=== PATIENT | female | born 1960 | race Caucasian/White ===

== ENCOUNTER 2020-03-29 17:22 | Inpatient (IN) | payer OTHER ==
[~2020-03-29] VITALS: Ht 165.1 cm; Wt 97.7 kg
[2020-03-29 18:50] VITALS: BP 138/85
[2020-03-29] MEDS ORDERED: ALBUTEROL 90 MCG/ACT 8GM HFA INHALER INH PRN (19:15)
--- NOTE | 2020-03-29 19:43 | HPEPDOC ---
General Date of Admission 03/29/20 Date of Service: March 29, 2020 Chief Complaint The patient is a 59-year-old female admitted with a reason for visit of Jackson Louis Syndrome. 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 Rash first appeared from the scalp with headache and burning on 03/21/20 and progressed to involve the whole body in 3 to 4 days. The rash is itchy and painful. It is red to pink in color desquamating type with patchy areas as well as areas of target like plaques and papules. Had gone to [facility] ED stayed overnight given steroids and discharged with po prednisone, betamethasome ointment. 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 Past Medical History Medical History RA, BRODY, Prediabetes, Reactive airway disease Anxiety and depression, Recurrent UTIs. GERD DDD HLD renal stone Surgical History umbilical hernia repair 1978 CS in 1985 tubal ligation 1986 right carpal tunnel repair 2010 Emergency Ex lap for cecal volvulus 2018 removed cecum and 6 inches of colon Appendectomy with above kidney stone removal 2019 Family History Significant Family History: No pertinent family hx discussed with patient. Social History * Smoker: non-smoker Alcohol: occationally Drugs: denies A-FIB/CHADSVASC A-FIB History Current/History of A-Fib/PAF?: No Review of Systems Constitutional: Reports: Fever, Malaise Eyes: Reports: Other (grittiness of eyes) ENT: Reports: Head Aches Skin: Reports: Rash, Lesions, Breakdown Pulmonary: Denies: Dyspnea, Cough Cardiovascular: Denies: Chest Pain, Palpitations, Orthopnea, Paroxysmal Noc. Dyspnea, Lt Headedness Gastrointestinal: Denies: Nausea, Vomiting, Abdominal Pain, Diarrhea Genitourinary: Reports: Other Symptoms (perineal and perianal mucosal breakdown) Hematologic: Denies: Bruising, Bleeding Excessively Musculoskeletal: Reports: Leg Pain, Muscle Pain Neurological: Denies: Weakness, Numbness, Change in speech, Confusion Psych: Reports: Anxiety, Depression Physical Examination General Exam: Positive: Alert, Cooperative, No Acute Distress Eye Exam: Positive: PERRLA, Conjunctiva & lids normal, EOMI; Negative: Sclera icteric ENT Exam: Positive: Atraumatic, Mucous membr. moist/pink, Pharynx Normal, Tongue Midline, Other ENT (No oral mucosal lesion seen, had uvular swelling which has resolved as reported by alexandra. ) Neck Exam: Positive: Supple; Negative: JVD, thyromegaly Chest Exam: Positive: Clear to auscultation, Normal air movement Heart Exam: Positive: Rate Normal, Regular Rhythm, Normal S1, Normal S2; Negative: Murmurs, Rubs Abdomen Exam: Positive: Normal bowel sounds, Soft, Other (No perineal lesions); Negative: Tenderness, Hepatospenomegaly Extremity Exam: Negative: Clubbing, Cyanosis, Edema Skin Exam: Positive: Rash (desquamating pink/ red patches on back, chest ,arms, face with red target like pink papules and plaques on the face, chest, abddomen, arms, legs), Other skin issue (No perineal lesions noted. 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 Rash first appeared from the scalp with headache and burning on 03/21/20 and progressed to involve the whole body in 3 to 4 days. 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 TEN/SJS thought to be related to Hydroxy chloroquine sulphate mucosal lesions has resolved. follow derm recommendations IVF solumedrol, neoral, tylenol, hydroxyzine stop prednisone, stop pepcid, stop betamethazone oint. dressing to be done as per derm Labs ordered as reccomended by dermatology Derm consult ophthal consult. RA getting outpatient work up Morbid obesity with BRODY reports does not need CPAP Reactive airway disease albuterol prn Anxiety and depression continue home meds GERD PPI Plan / VTE VTE Prophylaxis Ordered?: Yes NELA SIDDIQI MD March 29, 2020 17:39
[2020-03-29] MEDS ORDERED: BETA145CR TOP (20:00)
[2020-03-29] MEDS ORDERED: PRED20TA PO (20:00)
[2020-03-29] MEDS ORDERED: VENTAER INH (20:00)
[2020-03-29] MEDS ORDERED: FAMO20TA PO (20:00)
[2020-03-29] MEDS ORDERED: HYDR50TA70 PO (20:00)
[2020-03-29] MEDS ORDERED: FLUO10CA15 PO (20:03)
[2020-03-29] MEDS ORDERED: BUPR300T92 PO (20:03)
[2020-03-29] MEDS ORDERED: LINZ72CA PO (20:03)
[2020-03-29] MEDS ORDERED: FLUO20CA22 PO (20:03)
[2020-03-29] MEDS ORDERED: VITAD1000T PO (20:03)
[2020-03-29] MEDS ORDERED: PANT40TA3 PO (20:03)
[2020-03-29 20:04] LABS: HEMATOCRIT 36.1 % (36.0-47.0); HEMOGLOBIN 12.2 g/dl (12.0-15.5); MEAN CORPUSCULAR HEMOGLOBIN 31.9 pg (27.0-33.0); MEAN CORPUSCULAR HGB CONC 33.8 g/dl (32.0-36.5); MEAN CORPUSCULAR VOLUME 94.3 fl (80.0-96.0); PLATELET COUNT, AUTOMATED 380 10^3/uL (150-450); RED BLOOD COUNT 3.83 10^6/uL (4.00-5.40); WHITE BLOOD COUNT 18.8 10^3/uL (4.0-10.0)
[2020-03-29] MEDS ORDERED: CETALIQ TOP (20:04)
[2020-03-29 20:26] LABS: ERYTHROCYTE SEDIMENTATION RATE 15 mm/hr (0-30)
[2020-03-29 20:32] LABS: ATYPICAL LYMPH 2 % (0-5); EOSINOPHILS 2 % (0-3); LYMPHOCYTES 20 % (16-44); MONOCYTES 6 % (0-5); NEUTROPHILS 70 % (28-66)
[2020-03-29 20:33] LABS: ALBUMIN 3.3 GM/DL (3.2-5.2); ALT/SGPT 25 U/L (12-78); ANISOCYTOSIS 1+; BILIRUBIN,TOTAL 0.2 MG/DL (0.2-1.0); BLOOD UREA NITROGEN 17 MG/DL (7-18); C REACTIVE PROTEIN QUANTITATIV 9.49 MG/DL (0.00-0.30); CARBON DIOXIDE LEVEL 28 MEQ/L (21-32); CHLORIDE LEVEL 105 MEQ/L (98-107); CREATININE FOR GFR 0.86 MG/DL (0.55-1.30); FREE T4 1.05 NG/DL (0.76-1.46); GLOMERULAR FILTRATION RATE > 60.0 (>45); GLUCOSE, FASTING 118 MG/DL (70-100); IMMUNOGLOBULIN E 69.7 IU/ML (<100); LDH LACTATE DEHYDROGENASE 172 U/L (84-246); MAGNESIUM LEVEL 2.3 MG/DL (1.8-2.4); POTASSIUM SERUM 3.6 MEQ/L (3.5-5.1); SODIUM LEVEL 142 MEQ/L (136-145); URIC ACID 4.6 MG/DL (2.6-6.0)
[2020-03-29] MEDS: hydrOXYzine 50 MG TAB PO SCH (20:33)
[2020-03-29] MEDS: methylPREDNISolone INJ 125 MG/2 ML VIAL (J2930) IV SCH ×2 (20:33→21:04)
[2020-03-29] MEDS: NS 1,000 ML IV SCH ×2 (20:34→21:04)
[2020-03-29 20:43] LABS: PLATELET ESTIMATE NORMAL (NORMAL)
[2020-03-29] MEDS: ENOXAPARIN 40MG/0.4ML SYRINGE (J1650 PER 10MG) SC SCH (23:21)
[2020-03-29] MEDS: ACETAMINOPHEN 325 MG TAB PO PRN (23:35)
[2020-03-30] MEDS: SandIMMUNE 25 MG CAP (cycloSPORINE) (J7515) PO SCH ×2 (00:41→08:35)
[2020-03-30] MEDS: SandIMMUNE 100 MG CAP (J7502) PO SCH ×2 (00:41→08:34)
[2020-03-30 05:13] VITALS: BP 116/69
[2020-03-30 06:27] LABS: BASO % 0.2 % (0.0-1.0); EOS # 0.1 10^3/uL (0.0-0.5); EOS % 0.4 % (0.0-3.0); HEMATOCRIT 35.7 % (36.0-47.0); HEMOGLOBIN 11.7 g/dl (12.0-15.5); LYMPH # 1.9 10^3/uL (1.5-5.0); LYMPH % 11.9 % (24.0-44.0); MEAN CORPUSCULAR HEMOGLOBIN 31.3 pg (27.0-33.0); MEAN CORPUSCULAR HGB CONC 32.8 g/dl (32.0-36.5); MEAN CORPUSCULAR VOLUME 95.5 fl (80.0-96.0); MONO # 0.4 10^3/uL (0.0-0.8); MONO % 2.4 % (0.0-5.0); NEUTROPHILS # 13.3 10^3/uL (1.5-8.5); NEUTROPHILS % 83.2 % (36.0-66.0); PLATELET COUNT, AUTOMATED 367 10^3/uL (150-450); RED BLOOD COUNT 3.74 10^6/uL (4.00-5.40)
[2020-03-30 06:39] LABS: BLOOD UREA NITROGEN 18 MG/DL (7-18); CALCIUM LEVEL 8.4 MG/DL (8.8-10.2); CARBON DIOXIDE LEVEL 29 MEQ/L (21-32); CHLORIDE LEVEL 106 MEQ/L (98-107); CREATININE FOR GFR 0.88 MG/DL (0.55-1.30); GLOMERULAR FILTRATION RATE > 60.0 (>45); GLUCOSE, FASTING 174 MG/DL (70-100); POTASSIUM SERUM 4.2 MEQ/L (3.5-5.1); SODIUM LEVEL 142 MEQ/L (136-145)
--- NOTE | 2020-03-30 07:20 | IPNPDOC ---
Text Note Date of Service The patient was seen on 03/30/20. NOTE Subjective: Feels Ok says spots still have burning and itching sensation. Her eyes feels normal this morning no grittiness. Does complain of extreme dryness of the nostrils. Says having increased desquamation of the skin in the hypogastrium. Physical Exam: Vitals: As below General Exam: Positive: Alert, Cooperative, No Acute Distress Eye Exam: Positive: PERRLA, Conjunctiva & lids normal, EOMI; Negative: Sclera icteric ENT Exam: Positive: Atraumatic, Mucous membr. moist/pink, Pharynx Normal, Tongue Midline, Other ENT (No oral mucosal lesion seen, had uvular swelling which has resolved as reported by alexandra. ) Neck Exam: Positive: Supple; Negative: JVD, thyromegaly Chest Exam: Positive: Clear to auscultation, Normal air movement Heart Exam: Positive: Rate Normal, Regular Rhythm, Normal S1, Normal S2; Negative: Murmurs, Rubs Abdomen Exam: Positive: Normal bowel sounds, Soft, Other (No perineal lesions); Negative: Tenderness, Hepatospenomegaly Extremity Exam: Negative: Clubbing, Cyanosis, Edema Skin Exam: Positive: Rash (desquamating pink/ red patches on back, chest ,arms, face with red target like pink papules and plaques on the face, chest, a bddomen, arms, legs), Other skin issue (No perineal lesions noted. ) Labs and radiology noted. 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 Rash first appeared from the scalp with headache and burning on 03/21/20 and progressed to involve the whole body in 3 to 4 days. 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 TEN/SJS thought to be related to Hydroxy chloroquine sulphate mucosal lesions has resolved. follow derm recommendations IVF solumedrol, neoral, tylenol, hydroxyzine stop prednisone, stop pepcid, stop betamethazone oint. dressing to be done as per derm Labs ordered as reccomended by dermatology Derm consult No ophthalmoly available for unassigned call at this time. Possible Rheumatoid arthritis getting outpatient work up Morbid obesity with BRODY reports does not need CPAP Reactive airway disease albuterol prn Anxiety and depression continue home meds GERD PPI VS,Fishbone, I+O VS, Fishbone, I+O Laboratory Tests 03/29/20 19:48 03/30/20 05:53 Vital Signs Date Time Temp Pulse Resp B/P (MAP) Pulse Ox O2 Delivery O2 Flow Rate FiO2 03/30/20 05:13 97.8 71 17 116/69 (85) 97 Room Air I&O- Last 24 Hours up to 6 AM 03/30/20 06:00 Intake Total 600 ml Output Total 0 ml Balance 600 ml NELA SIDDIQI MD March 30, 2020 07:20
[2020-03-30 07:21] LABS: MAGNESIUM LEVEL 2.2 MG/DL (1.8-2.4)
--- NOTE | 2020-03-30 08:27 | CR.PDOC ---
General Date of Consultation: March 30, 2020 Referring Provider: NELA SIDDIQI MD Attending Physician: RENNY RIBEIRO MD Consultation REASON FOR CONSULTATION/CHIEF COMPLAINT: TEN HISTORY OF PRESENT ILLNESS: Patient is a 59 year old female who originally presented to the dermatology clinic on 03/29/2020 with complaint of rash covering whole body 10 days after starting hydroxychloroquine for RA. Prior to presentation, she had been evaluated by [facility] ED, and was observed overnight for a rash and was treated with: 60 mg of prednisone daily. Pepcid 10 mg BID, Hydroxyzine 50 mg 4 x day, Cetaphil lotion, Betamethasone cream, Tylenol 500 mg q4h-6 hrs. On presentation to the derm clinic she complained of worsening rash that had spread to her whole body after starting on her scalp and progressing down her body. The rash also began to peel, and caused swollen itching eyes, with some sores on her genitals, plus improving oral sore on uvula. 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 This morning pt was examined in her room.She stated that she was feeling better. She had decreased burning sensation all over her body, but still felt uncomfortable, she had sweaty sensation on her bilateral sides, she also complained of gritty sensation and tighter feel to eyelids. Reports improving genital lesions. She is able to tolerate by mouth intake, no trouble or pain wit h defecation or urination. ALLERGIES: Please see below. HOME MEDICATIONS: Please see below. PAST MEDICAL HISTORY: RA, BRODY Prediabetes, Reactive airway disease Anxiety and depression Recurrent UTIs. GERD DDD HLD Renal stone PAST SURGICAL HISTORY: Umbilical hernia repair 1979 CS in 1985 Tubal ligation 1987 Right carpal tunnel repair 2011 Emergency Ex lap for cecal volvulus 2018 removed cecum and 6 inches of colon Appendectomy with above Kidney stone removal 2019 FAMILY HISTORY: Not contributory, son is adult health clinical nurse specialist, daughter is nurse in ICU SOCIAL HISTORY: Non smoker, denies etoh use REVIEW OF SYSTEMS: CONSTITUTIONAL: Reported fever prior to admission, no chills, no weight loss HEENT: Oral sores that are improving, gritty eyelids, no change in vision CARDIOVASCULAR: No chest pain, no murmurs, no chest discomfort RESPIRATORY: No breathing difficulty, no cough, no hemoptysis GENITOURINARY: Reported labia lesions that are resolving MUSCULOSKELETAL: No muscle pain, no weakness, GASTROINTESTINAL: No nausea, no vomiting, no diarrhea SKIN: Whole body rash that is peeling, itching, and burning HEMATOLOGIC/LYMPHATIC: No bleeding PHYSICAL EXAMINATION: VITAL SIGNS: Please see below. GENERAL APPEARANCE: Pleasant, no apparent distress SKIN: Desquamating, peeling, pink to red patches to back, chest , arms, and face. She also has pink to red targetoid pink papules and plaques on her face chest back abdomen arms and legs hands and feet, patient reports rash is less painful today and has decreased in size - BSA 66% HEENT: Head is atraumatic, oral mucosa is moist, round and re-active to light for eyes, eyes do not have hyperemia, no complaint of visual changes, complains of heavy eyelids RESPIRATORY: CTAB CARDIOVASCULAR: S1 and S2 present, no murmurs rubs or gallop LABORATORY DATA: Please see below. ASSESSMENT/PLAN: A 59 year old female admitted for TEN with 66 BSA. Possible subcorneal subtype. Admitted to regular floor. With the possibility to transfer to ICU if condition worsens and plan to transfer to a burn unit in [place] in she has no improvement or worsens, patient aware. She is stable compared to yesterday in clinic, tolerating IV Solumedrol and PO CSA, blood pressure, Mg, K not problematic. 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 SCORTEN score calculated with a mortality rate of 12.1% (Positive for initial surface of detachment >10 and age over 40) - Intravenous fluid resuscitation as needed, enteral feedings tolerated, no pr oblems with urination or defecation - mucosa intact and doing well at this point in time - Regular diet, ad sergio activity - Monitor CBC, BMP (potassium as focus) and K daily while on CSA and to monitor white count for any problematic changes - If spikes fever (100.4 degrees or higher), blood culture to be performed x 2 and repeat temperature in 30 minutes. If persistent fever or blood culture posi tive, defer to primary team on antibiotic coverage and consult ID as indicated - Use gentle cleanser daily prior to applying thick layer of Vaseline and non- adherent dressings (non-adherent dressings should be placed on pressure areas like the back, buttocks, and back of legs) - Solumedrol 125 mg IV every 24 hours x 3 days, SER with patient of steroid IV at high doses, she is aware. Tolerating well right now. - In addition, start Neoral (it needs to specifically be Neoral) at 5 mg/kg divided into AM and PM dose x 5 days of medication - I have changed this from SandIMMUNE to Neoral in the system, pharmacy should contact primary team if for some reason this is going to be a problem in acquiring medication. She has received CSA dosing but I prefer Neoral in this situation (specific brand). The real issue is that it needs to be cyclosporine modified and Neoral is - as long as the medication being given is cyclosporine modified this should be fine - No field artillery operations specialist ophthalmology available. Start artificial tears and prednisolone acetate TID OU to decrease optic inflammation, will require outpatient ophthalmology follow up. I would prefer an inpatient ophtho evaluation but I understand this is not available right now. - Defer biopsy as my concern for TEN/SJS is high enough that I'm not relying on the biopsy to approach treatment - this is a time sensitive matter and needs to be treated now - Family updated. Patient's son - Phill Campos at [phone] would like to be updated on mother's condition. He was spoken to today and all of his questions were answered 2. Elevated WBC with neutrophilia - I favor this to be 2/2 prednisone that has been delivered causing neutrophil demargination. - If spikes fever (100.4 degrees or higher), blood culture to be performed x 2 and repeat temperature in 30 minutes. If persistent fever or blood culture positive, defer to primary team on antibiotic coverage and consult ID as indicated Dermatology will continue to see this patient. She is to remain inpatient for the time to monitor for clinical change. Low threshold for transfer if problems beyond [facility]'s capabilities develop. Thank you for your care of this patient. Renny Ribeiro MD [facility] [phone] (personal cell) [phone] (work cell) Vital Signs/I&O Vital Signs Date Time Temp Pulse Resp B/P (MAP) Pulse Ox O2 Delivery O2 Flow Rate FiO2 03/30/20 05:13 97.8 71 17 116/69 (85) 97 Room Air I&O- Last 24 Hours up to 6 AM 03/30/20 06:00 Intake Total 600 ml Output Total 0 ml Balance 600 ml Laboratory Data Labs 24H Laboratory Tests 2 03/29/20 19:48: Neutrophils (%) (Auto) , Nucleated Red Blood Cells % (auto) 0.0, Neutrophils 7 0H, Lymphocytes (Manual) 20, Monocytes (Manual) 6H, Eosinophils (Manual) 2, Atypical Lymphocytes 2, Hypochromasia , Anisocytosis 1+, Platelet Estimate NORMAL, Erythrocyte Sedimentation Rate 15, Anion Gap 9, Glomerular Filtration Rate > 60.0, Uric Acid 4.6, Calcium Level 9.0, Magnesium Level 2.3, Total Bilirubin 0.2, Aspartate Amino Transf (AST/SGOT) 6L, Alanine Aminotransferase (ALT/SGPT) 25, Alkaline Phosphatase 91, Lactate Dehydrogenase 172, C-Reactive Protein, Quantitative 9.49H, Total Protein 6.0L, Albumin 3.3, Albumin/Globulin Ratio 1.22, Thyroid Stimulating Hormone (TSH) 2.270, Free Thyroxine 1.05, Immunoglobulin A 114.0, Immunoglobulin E 69.7 03/30/20 05:53: Neutrophils (%) (Auto) 83.2H, Nucleated Red Blood Cells % (auto) 0.0, Anion Gap 7L, Glomerular Filtration Rate > 60.0, Calcium Level 8.4L, Magnesium Level 2.2, Immature Granulocyte % (Auto) 1.9, Lymphocytes (%) (Auto) 11.9L, Monocytes (%) (Auto) 2.4, Eosinophils (%) (Auto) 0.4, Basophils (%) (Auto) 0.2, Neutrophils # (Auto) 13.3H, Lymphocytes # (Auto) 1.9, Monocytes # (Auto) 0.4, Eosinophils # (Auto) 0.1, Basophils # (Auto) 0.0 CBC/BMP Laboratory Tests 03/29/20 19:48 03/30/20 05:53 Allergies Coded Allergies: chlorhexidine (Unverified Allergy, Severe, HIVES, 03/29/20) hydroxychloroquine (Unverified Allergy, Severe, Rash - SJS/TEN, 03/30/20) levofloxacin (Unverified Allergy, Severe, SWOLLEN EYES & LIPS, 03/29/20) Home Medications Scheduled Betamethasone Cyn (Betamethasone Valerate) 45 Gm Cream..g., 1 APPLIC TOP TID, (Reported) Bupropion HCl (Bupropion Xl) 300 Mg Tab.er.24h, 300 MG PO DAILY, (Reported) Cholecalciferol (Vitamin D3) (Vitamin D3) 1,000 Unit Tablet, 1,000 UNITS PO DAILY, (Reported) Famotidine (Famotidine) 20 Mg Tablet, 20 MG PO BID, (Reported) Fluoxetine Hcl (Fluoxetine HCl) 10 Mg Capsule, 10 MG PO DAILY, (Reported) Fluoxetine Hcl (Fluoxetine HCl) 20 Mg Capsule, 20 MG PO DAILY, (Reported) Linaclotide (Linzess) 72 Mcg Capsule, 72 MCG PO DAILY, (Reported) Pantoprazole Sodium (Pantoprazole Sodium) 40 Mg Tablet.dr, 40 MG PO DAILY, (Reported) Prednisone (Prednisone) 20 Mg Tablet, 60 MG PO DAILY, (Reported) FOR 5 DAYS STARTING 03/26/20. Skin Cleanser (Cetaphil) 237 Ml Cleanser, 1 LIQ TOP QID, (Reported) Scheduled PRN Albuterol Sulfate (Ventolin Hfa) 18 Gm Hfa.aer.ad, 2 PUFFS INH Q4H PRN for DYSPNEA, (Reported) Hydroxyzine HCl (Hydroxyzine HCl) 50 Mg Tablet, 50 MG PO QID PRN for ITCHING, (Reported) YELENA BEASLEY DO March 30, 2020 08:27 RENNY RIBEIRO MD March 30, 2020 19:08
[2020-03-30] MEDS: PANTOPRAZOLE 40MG TAB (PROTONIX) PO SCH (08:34)
[2020-03-30] MEDS: FLUoxetine 10 MG CAP PO SCH (08:34)
[2020-03-30] MEDS: NS 1,000 ML IV SCH ×2 (08:35→20:58)
[2020-03-30] MEDS: SODIUM CHLORIDE NASAL 0.65% SPRAY BTL (OCEAN) PRN (12:06)
[2020-03-30 14:00] VITALS: BP 123/69
[2020-03-30] MEDS: POLYVINYL ALCOHOL OPHTH SOLN 15 ML(LIQUITEARS) OU SCH ×2 (15:29→20:35)
[2020-03-30] MEDS: prednisoLONE ACET 1% OPHTH SUSP 5ML OU SCH ×2 (15:29→20:35)
[2020-03-30] MEDS: ACETAMINOPHEN 325 MG TAB PO PRN (17:16)
[2020-03-30] MEDS: NEORAL 25 MG CAP (J7515) PO SCH (20:34)
[2020-03-30] MEDS: hydrOXYzine 50 MG TAB PO SCH (20:34)
[2020-03-30] MEDS: methylPREDNISolone INJ 125 MG/2 ML VIAL (J2930) IV SCH (20:34)
[2020-03-30] MEDS: ENOXAPARIN 40MG/0.4ML SYRINGE (J1650 PER 10MG) SC SCH (20:34)
[2020-03-30] MEDS ORDERED: NEORAL 100 MG CAP (J7502) PO SCH (21:00)
[2020-03-30] MEDS ORDERED: NEORAL 25 MG CAP (J7515) PO SCH (21:00)
[2020-03-30 22:00] VITALS: BP 140/76
[2020-03-31 06:00] VITALS: BP 145/81
[2020-03-31 06:11] LABS: BASO % 0.2 % (0.0-1.0); EOS % 0.3 % (0.0-3.0); HEMATOCRIT 34.2 % (36.0-47.0); HEMOGLOBIN 11.3 g/dl (12.0-15.5); LYMPH # 1.9 10^3/uL (1.5-5.0); LYMPH % 15.2 % (24.0-44.0); MEAN CORPUSCULAR HEMOGLOBIN 32.1 pg (27.0-33.0); MEAN CORPUSCULAR VOLUME 97.2 fl (80.0-96.0); MONO # 0.3 10^3/uL (0.0-0.8); MONO % 2.1 % (0.0-5.0); NEUTROPHILS # 9.8 10^3/uL (1.5-8.5); NEUTROPHILS % 78.2 % (36.0-66.0); PLATELET COUNT, AUTOMATED 344 10^3/uL (150-450); RED BLOOD COUNT 3.52 10^6/uL (4.00-5.40); WHITE BLOOD COUNT 12.5 10^3/uL (4.0-10.0)
[2020-03-31 06:29] LABS: BLOOD UREA NITROGEN 17 MG/DL (7-18); CALCIUM LEVEL 8.2 MG/DL (8.8-10.2); CARBON DIOXIDE LEVEL 30 MEQ/L (21-32); CHLORIDE LEVEL 109 MEQ/L (98-107); CREATININE FOR GFR 0.88 MG/DL (0.55-1.30); GLOMERULAR FILTRATION RATE > 60.0 (>45); GLUCOSE, FASTING 183 MG/DL (70-100); POTASSIUM SERUM 4.8 MEQ/L (3.5-5.1); SODIUM LEVEL 144 MEQ/L (136-145)
[2020-03-31] MEDS: MAGNESIUM OXIDE 400 MG TAB (MAG-OX) PO SCH ×2 (08:39→20:45)
[2020-03-31] MEDS: FLUoxetine 10 MG CAP PO SCH (08:39)
[2020-03-31] MEDS: PANTOPRAZOLE 40MG TAB (PROTONIX) PO SCH (08:40)
[2020-03-31] MEDS: NEORAL 25 MG CAP (J7515) PO SCH ×2 (08:41→20:47)
[2020-03-31] MEDS: prednisoLONE ACET 1% OPHTH SUSP 5ML OU SCH ×3 (08:42→20:46)
[2020-03-31] MEDS: POLYVINYL ALCOHOL OPHTH SOLN 15 ML(LIQUITEARS) OU SCH ×3 (08:42→20:46)
--- NOTE | 2020-03-31 10:38 | IPNPDOC ---
Text Note Date of Service The patient was seen on 03/31/20. NOTE Subjective: Feels Ok says some spots still have burning and itching sensation. Her eyes feels normal this morning no grittiness. Has started desquamation in the legs, Her face has cleared up. Ongoing desquamation of the trunk, buttocks. Complained of gum bleeding during brushing of teeth. no oral mucosal lesions seen. Physical Exam: Vitals: As below General Exam: Positive: Alert, Cooperative, No Acute Distress Eye Exam: Positive: PERRLA, Conjunctiva & lids normal, EOMI; Negative: Sclera icteric ENT Exam: Positive: Atraumatic, Mucous membr. moist/pink, Pharynx Normal, Tongue Midline, Other ENT (No oral mucosal lesion seen, had uvular swelling which has resolved as reported by alexandra. ) Neck Exam: Positive: Supple; Negative: JVD, thyromegaly Chest Exam: Positive: Clear to auscultation, Normal air movement Heart Exam: Positive: Rate Normal, Regular Rhythm, Normal S1, Normal S2; Negative: Murmurs, Rubs Abdomen Exam: Positive: Normal bowel sounds, Soft, Other (No perineal lesions); Negative: Tenderness, Hepatospenomegaly Extremity Exam: Negative: Clubbing, Cyanosis, Edema Skin Exam: Positive: Rash (desquamating pink/ red patches on back, chest ,arms, face with red target like pink papules and plaques on the face, chest, abdomen, arms, legs), Other skin issue (No perineal lesions noted. ) Labs and radiology noted. 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 Rash first appeared from the scalp with headache and burning on 03/21/20 and progressed to involve the whole body in 3 to 4 days. 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 TEN/SJS thought to be related to Hydroxy chloroquine sulphate mucosal lesions has resolved. follow derm recommendations IVF solumedrol, neoral, tylenol, hydroxyzine dressing to be done as per derm Eye drops. Possible Rheumatoid arthritis getting outpatient work up Morbid obesity with BRODY reports does not need CPAP Reactive airway disease albuterol prn Anxiety and depression continue home meds GERD PPI VS,Fishbone, I+O VS, Fishbone, I+O Laboratory Tests 03/31/20 05:43 Vital Signs Date Time Temp Pulse Resp B/P (MAP) Pulse Ox O2 Delivery O2 Flow Rate FiO2 03/31/20 06:00 97.4 60 18 145/81 (102) 96 Room Air I&O- Last 24 Hours up to 6 AM 03/31/20 06:00 Intake Total 3840 ml Balance 3840 ml NELA SIDDIQI MD March 31, 2020 10:38
[2020-03-31 14:00] VITALS: BP 147/85
[2020-03-31] MEDS: hydrOXYzine 25 MG TAB PO PRN (16:04)
[2020-03-31] MEDS: ENOXAPARIN 40MG/0.4ML SYRINGE (J1650 PER 10MG) SC SCH (20:45)
[2020-03-31] MEDS: SODIUM CHLORIDE NASAL 0.65% SPRAY BTL (OCEAN) PRN (20:46)
[2020-03-31 21:11] VITALS: BP 131/71
--- NOTE | 2020-03-31 21:25 | IPNPDOC ---
Text Note Date of Service The patient was seen on 03/31/20. NOTE SUBJECTIVE: Patient is a 59 year old female who originally presented to the dermatology clinic on 03/29/2020 with complaint of rash covering whole body 10 days after starting hydroxychloroquine for RA with concern for TEN. Patient was admitted that same day. This afternoon pt was examined in her room. She stated that she was feeling better. She had decreased burning sensation all over her body, but still felt uncomfortable with chills and flushing sensation. Grittiness from eyes gone. Redness reduced. Mild bleeding of gums while brushing teeth. Was able to shower, felt good. She is able to tolerate by mouth intake, no trouble or pain with defecation or urination. REVIEW OF SYSTEMS: CONSTITUTIONAL: Flushing sensation, chill sensation (mild and alternating) HEENT: No oral sores, mild bleeding gums, no gritty eye sensation, no change in vision CARDIOVASCULAR: No chest pain, no murmurs, no chest discomfort RESPIRATORY: No breathing difficulty, no cough, no hemoptysis GENITOURINARY: Reported labia lesions that are resolved GASTROINTESTINAL: No trouble eating SKIN: Whole body rash that is peeling, itching, and burning - improving per patient PHYSICAL EXAMINATION: VITAL SIGNS: Please see below. GENERAL APPEARANCE: Pleasant, no apparent distress SKIN: Desquamating, peeling, pink to red patches to back, chest , arms, and face. She also has pink to red targetoid pink papules and plaques on her face chest back abdomen arms and legs hands and feet, patient reports rash is less painful today and has decreased in size - BSA 40% with increased desquamation especially abdomen, buttocks, and legs HEENT: Head is atraumatic, oral mucosa is moist, round and re-active to light for eyes, eyes do not have hyperemia, no complaint of visual changes RESPIRATORY: RRR, no labored breathing LABORATORY DATA: Please see below. ASSESSMENT/PLAN: A 59 year old female admitted for TEN with original 66% BSA who is now at 40% BSA. Possible subcorneal subtype. Admitted to regular floor. With the possibility to transfer to ICU if condition worsens and plan to transfer to a b urn unit in [place] in she has no improvement or worsens, patient aware. She is 40% better compared to original visit on Sunday, tolerating IV Solumedrol and PO CSA, blood pressure, Mg trending downward, mild blood pressure elevation, K not problematic. 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 If persistent fever or blood culture positive, defer to primary team on antibiotic coverage and consult ID as indicated - Use gentle cleanser daily prior to applying thick layer of Vaseline and non- adherent dressings (non-adherent dressings should be placed on pressure areas like the back, buttocks, and back of legs) - Vaseline is to be applied ad sergio, thick and greasy, patient and nursing aware - Continue Solumedrol 125 mg IV every 24 hours x 3 days, SER with patient of steroid IV at high doses, she is aware. Tolerating well right now. Final dose to be given in the AM as patient had trouble sleeping last night - Continue Neoral (it needs to specifically be Neoral) at 5 mg/kg divided into AM and PM dose x 5 days of medication total. Tolerating well right now. Mild increase in BP noted, sCr normal, K normal, Mg decreasing slightly. Recommend starting MgOx 400 mg PO BID - Continue artificial tears and prednisolone acetate TID OU to decrease optic inflammation, will require outpatient ophthalmology follow up. I would prefer an inpatient ophtho evaluation but I understand this is not available right now - she feels eyes are better, no gritty sensation - Educated patient that peeling will linger, she is aware 2. Elevated WBC with neutrophilia - I favor this to be 2/2 prednisone that has been delivered causing neutrophil demargination. Improving - If spikes fever (100.4 degrees or higher), blood culture to be performed x 2 and repeat temperature in 30 minutes. If persistent fever or blood culture posi tive, defer to primary team on antibiotic coverage and consult ID as indicated Dermatology will continue to see this patient. She is to remain inpatient for the time to monitor for clinical change. Low threshold for transfer if problems beyond [facility]'s capabilities develop. Thank you for your care of this patient. Renny Ribeiro MD [facility] [phone] (personal cell) [phone] (work cell) VS,Fishbone, I+O VS, Fishbone, I+O Laboratory Tests 03/31/20 05:43 Vital Signs Date Time Temp Pulse Resp B/P (MAP) Pulse Ox O2 Delivery O2 Flow Rate FiO2 03/31/20 14:00 98.0 56 18 147/85 (105) 97 Room Air I&O- Last 24 Hours up to 6 AM 03/31/20 06:00 Intake Total 3840 ml Balance 3840 ml RENNY RIBEIRO MD March 31, 2020 21:24
[2020-04-01 05:20] VITALS: BP 160/82
[2020-04-01 07:12] LABS: HEMATOCRIT 33.9 % (36.0-47.0); HEMOGLOBIN 10.9 g/dl (12.0-15.5); MEAN CORPUSCULAR HEMOGLOBIN 31.5 pg (27.0-33.0); MEAN CORPUSCULAR HGB CONC 32.2 g/dl (32.0-36.5); PLATELET COUNT, AUTOMATED 308 10^3/uL (150-450); RED BLOOD COUNT 3.46 10^6/uL (4.00-5.40); WHITE BLOOD COUNT 10.8 10^3/uL (4.0-10.0)
[2020-04-01 07:21] LABS: BLOOD UREA NITROGEN 21 MG/DL (7-18); CALCIUM LEVEL 8.7 MG/DL (8.8-10.2); CARBON DIOXIDE LEVEL 31 MEQ/L (21-32); CHLORIDE LEVEL 105 MEQ/L (98-107); CREATININE FOR GFR 0.95 MG/DL (0.55-1.30); GLOMERULAR FILTRATION RATE > 60.0 (>45); GLUCOSE, FASTING 97 MG/DL (70-100); MAGNESIUM LEVEL 2.1 MG/DL (1.8-2.4); POTASSIUM SERUM 4.1 MEQ/L (3.5-5.1); SODIUM LEVEL 142 MEQ/L (136-145)
[2020-04-01 07:31] VITALS: BP 152/91
--- NOTE | 2020-04-01 07:37 | IPNPDOC ---
Text Note Date of Service The patient was seen on 04/01/20. NOTE SUBJECTIVE: Patient is a 59 year old female who originally presented to the dermatology clinic on 03/29/2020 with complaint of rash covering whole body 10 days after starting hydroxychloroquine for RA with concern for TEN. Patient was admitted that same day. Patient was examined this morning. She reported good sleep last night. She states that her pain has improved. She has minimal burning pain. This AM she has elevated BP and sightly bradycardic but not far from baseline. She does not have a history of HTN. Denies chest pain, palpitation and chest discomfort. She complained this morning of a cough and chest congestion that resolved, slight burning in chest last night that resolved after 20-30 minutes. REVIEW OF SYSTEMS: CONSTITUTIONAL: No fevers, chill, occasional flushing sensation, HEENT: No oral sores, mild bleeding gums several days ago, no gritty eye sensation, no change in vision CARDIOVASCULAR: No chest pain, no murmurs, no chest discomfort, no chest pressure RESPIRATORY: No breathing difficulty, no cough, no hemoptysis GENITOURINARY: Reported labia lesions that are resolved GASTROINTESTINAL: No trouble eating, no N/V/D SKIN: Whole body rash that is peeling, itching, and burning - improving per patient PHYSICAL EXAMINATION: VITAL SIGNS: Please see below. GENERAL APPEARANCE: Pleasant, no apparent distress, OAx3 SKIN: Desquamating, peeling, pink to red patches to back, chest , arms, and face that is improving. She also has pink to red targetoid pink papules and plaques on her face chest back abdomen arms and legs hands and feet, patient reports rash is less painful today and has decreased in size - BSA 20 % with increased desquamation especially abdomen, buttocks, and legs HEENT: Head is atraumatic, oral mucosa is moist, round and re-active to light for eyes, eyes do not have hyperemia RESPIRATORY: RRR, no labored breathing LABORATORY DATA: Please see below. ASSESSMENT/PLAN: A 59 year old female admitted for TEN with original 66% BSA who is now at 40% BSA. Possible subcorneal subtype. Admitted to regular floor. With the possibility to transfer to ICU if condition worsens and plan to transfer to a burn unit in [place] in she has no improvement or worsens, patient aware. She is 66% better compared to original visit on Sunday, tolerating IV Solumedrol (now complete as of this morning) and PO CSA, blood pressure with elevation compared to baseline, Mg trending downward, K not problematic. PLAN 1. Toxic epidermal necrolysis - 66% improvement compared to original visit with me - Intravenous fluid resuscitation as needed, enteral feedings tolerated, no problems with urination or defecation - mucosa intact and doing well at this point in time - reports mild bleeding of gums with brushing teeth but not currently active (no sores present) - Regular diet, ad sergio activity - Monitor CBC, BMP (potassium as focus) and Mg daily while on CSA and to monitor white count for any problematic changes (white count downtrending, mostly neutrophils) - If spikes fever (100.4 degrees or higher), blood culture to be performed x 2 and repeat temperature in 30 minutes. If persistent fever or blood culture positive, defer to primary team on antibiotic coverage and consult ID as indicated - Use gentle cleanser daily prior to applying thick layer of Vaseline and non- adherent dressings (non-adherent dressings should be placed on pressure areas like the back, buttocks, and back of legs) - Vaseline is to be applied ad sergio, thick and greasy, patient and nursing aware - FINISHED Solumedrol 125 mg IV every 24 hours x 3 days, SER with patient of s teroid IV at high doses, she is aware including blood pressure elevation, water retention, change to electrolytes, eugenie, trouble sleeping - Decrease Neoral (it needs to specifically be Neoral) to < 5 mg/kg divided into AM and PM dose x 5 days of medication total - this would be 200 mg PO BID. Last dose this upcoming Sunday night. Tolerating well right now. Mild increase in BP noted, sCr normal with slight elevation (CSA is vasoconstricter on short term base usage), K normal, Mg today is 2.1, currently on MgOx 400 mg PO BID - Continue artificial tears and prednisolone acetate TID OU to decrease optic inflammation, will require outpatient ophthalmology follow up. I would prefer an inpatient ophtho evaluation but I understand this is not available right now - she feels eyes are better, no gritty sensation - Educated patient that peeling will linger, she is aware 2. Elevated WBC with neutrophilia - I favor this to be 2/2 prednisone that has been delivered causing neutrophil demargination. Improving today. Currently at 10.8 - If spikes fever (100.4 degrees or higher), blood culture to be performed x 2 and repeat temperature in 30 minutes. If persistent fever or blood culture positive, defer to primary team on antibiotic coverage and consult ID as indicated Dermatology will continue to see this patient. She is to remain inpatient for the time to monitor for clinical change. Low threshold for transfer if problems beyond [facility] capabilities develop. Thank you for your care of this patient. Renny Ribeiro MD [facility] [phone] (personal cell) [phone] (work cell) VS,Fishbone, I+O VS, Fishbone, I+O Vital Signs Date Time Temp Pulse Resp B/P (MAP) Pulse Ox O2 Delivery O2 Flow Rate FiO2 04/01/20 05:20 97.5 52 16 160/82 (108) 100 Room Air I&O- Last 24 Hours up to 6 AM 04/01/20 06:00 Intake Total 2676 ml Balance 2676 ml YELENA BEASLEY DO April 01, 2020 07:11 RENNY RIBEIRO MD April 02, 2020 11:37
[2020-04-01 08:02] LABS: LYMPHOCYTES 51 % (16-44); MONOCYTES 4 % (0-5); NEUTROPHILS 45 % (28-66)
[2020-04-01 08:03] LABS: ANISOCYTOSIS 1+; PLATELET ESTIMATE NORMAL (NORMAL)
[2020-04-01] MEDS: MAGNESIUM OXIDE 400 MG TAB (MAG-OX) PO SCH ×2 (08:39→20:20)
[2020-04-01] MEDS: FLUoxetine 10 MG CAP PO SCH (08:39)
[2020-04-01] MEDS: NEORAL 25 MG CAP (J7515) PO SCH ×2 (08:40→20:21)
[2020-04-01] MEDS: methylPREDNISolone INJ 125 MG/2 ML VIAL (J2930) IV SCH (08:40)
[2020-04-01] MEDS: PANTOPRAZOLE 40MG TAB (PROTONIX) PO SCH (08:40)
[2020-04-01] MEDS: prednisoLONE ACET 1% OPHTH SUSP 5ML OU SCH ×3 (08:49→20:20)
[2020-04-01] MEDS: POLYVINYL ALCOHOL OPHTH SOLN 15 ML(LIQUITEARS) OU SCH ×3 (08:49→20:19)
--- NOTE | 2020-04-01 11:02 | IPNPDOC ---
Text Note Date of Service The patient was seen on 04/01/20. NOTE Subjective: Complained of some headache this am. She also said she felt some t ightness in her chest last night when she lay down but not this morning. She just has an headache . Her blood pressure is mildly elevated this morning possibly due to cyclosporine and steroids. Physical Exam: Vitals: As below General Exam: Positive: Alert, Cooperative, No Acute Distress Eye Exam: Positive: PERRLA, Conjunctiva & lids normal, EOMI; Negative: Sclera icteric ENT Exam: Positive: Atraumatic, Mucous membr. moist/pink, Pharynx Normal, Tongue Midline, Other ENT (No oral mucosal lesion seen, had uvular swelling which has resolved as reported by alexandra. ) Neck Exam: Positive: Supple; Negative: JVD, thyromegaly Chest Exam: Positive: Clear to auscultation, Normal air movement Heart Exam: Positive: Rate Normal, Regular Rhythm, Normal S1, Normal S2; Negative: Murmurs, Rubs Abdomen Exam: Positive: Normal bowel sounds, Soft, Other (No perineal lesions); Negative: Tenderness, Hepatospenomegaly Extremity Exam: Negative: Clubbing, Cyanosis, Edema Skin Exam: Positive: Rash (desquamating pink/ red patches on back, chest ,arms, face with red target like pink papules and plaques on the face, chest, abdomen, arms, legs) improving. Labs and radiology noted. 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 Rash first appeared from the scalp with headache and burning on 03/21/20 and progressed to involve the whole body in 3 to 4 days. 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 TEN/SJS thought to be related to Hydroxy chloroquine sulphate mucosal lesions have resolved. follow derm recommendations IVF solumedrol x 3 doses, neoral, tylenol, hydroxyzine dressing to be done as per derm Eye drops prednisone and artificial tears. Possible Rheumatoid arthritis getting outpatient work up Morbid obesity with BRODY reports does not need CPAP Reactive airway disease albuterol prn Anxiety and depression continue home meds GERD PPI VS,Fishbone, I+O VS, Fishbone, I+O Laboratory Tests 04/01/20 06:43 Vital Signs Date Time Temp Pulse Resp B/P (MAP) Pulse Ox O2 Delivery O2 Flow Rate FiO2 04/01/20 07:31 58 152/91 (111) 04/01/20 05:20 97.5 16 100 Room Air I&O- Last 24 Hours up to 6 AM 04/01/20 06:00 Intake Total 2676 ml Balance 2676 ml NELA SIDDIQI MD April 01, 2020 11:01
[2020-04-01 14:00] VITALS: BP 146/81
[2020-04-01] MEDS: hydrOXYzine 25 MG TAB PO PRN (16:00)
[2020-04-01 19:59] VITALS: BP 146/78
[2020-04-01] MEDS: SODIUM CHLORIDE NASAL 0.65% SPRAY BTL (OCEAN) PRN (20:20)
[2020-04-01] MEDS: ENOXAPARIN 40MG/0.4ML SYRINGE (J1650 PER 10MG) SC SCH (20:20)
[2020-04-02 05:51] VITALS: BP 142/73
[2020-04-02 06:26] LABS: BASO % 0.2 % (0.0-1.0); EOS % 0.3 % (0.0-3.0); HEMATOCRIT 33.3 % (36.0-47.0); HEMOGLOBIN 11.1 g/dl (12.0-15.5); LYMPH # 3.5 10^3/uL (1.5-5.0); LYMPH % 25.8 % (24.0-44.0); MEAN CORPUSCULAR HEMOGLOBIN 31.6 pg (27.0-33.0); MEAN CORPUSCULAR HGB CONC 33.3 g/dl (32.0-36.5); MEAN CORPUSCULAR VOLUME 94.9 fl (80.0-96.0); MONO # 0.8 10^3/uL (0.0-0.8); MONO % 6.1 % (0.0-5.0); NEUTROPHILS # 9.1 10^3/uL (1.5-8.5); NEUTROPHILS % 66.1 % (36.0-66.0); PLATELET COUNT, AUTOMATED 326 10^3/uL (150-450); RED BLOOD COUNT 3.51 10^6/uL (4.00-5.40); WHITE BLOOD COUNT 13.7 10^3/uL (4.0-10.0)
[2020-04-02 06:41] LABS: BLOOD UREA NITROGEN 21 MG/DL (7-18); CALCIUM LEVEL 9.3 MG/DL (8.8-10.2); CARBON DIOXIDE LEVEL 33 MEQ/L (21-32); CHLORIDE LEVEL 102 MEQ/L (98-107); CREATININE FOR GFR 0.88 MG/DL (0.55-1.30); GLOMERULAR FILTRATION RATE > 60.0 (>45); GLUCOSE, FASTING 116 MG/DL (70-100); POTASSIUM SERUM 4.2 MEQ/L (3.5-5.1); SODIUM LEVEL 140 MEQ/L (136-145)
[2020-04-02] MEDS: amLODIPine 5 MG TAB PO SCH (09:00)
[2020-04-02] MEDS: PANTOPRAZOLE 40MG TAB (PROTONIX) PO SCH (09:19)
[2020-04-02] MEDS: methylPREDNISolone INJ 125 MG/2 ML VIAL (J2930) IV SCH (09:19)
[2020-04-02] MEDS: MAGNESIUM OXIDE 400 MG TAB (MAG-OX) PO SCH ×2 (09:19→20:01)
[2020-04-02] MEDS: FLUoxetine 10 MG CAP PO SCH (09:19)
[2020-04-02] MEDS: NEORAL 25 MG CAP (J7515) PO SCH ×2 (09:20→20:02)
[2020-04-02] MEDS: prednisoLONE ACET 1% OPHTH SUSP 5ML OU SCH ×3 (09:20→20:02)
[2020-04-02] MEDS: POLYVINYL ALCOHOL OPHTH SOLN 15 ML(LIQUITEARS) OU SCH ×3 (09:20→20:02)
--- NOTE | 2020-04-02 12:36 | IPNPDOC ---
Text Note Date of Service The patient was seen on 04/02/20. NOTE Subjective: No complaints this am. Rash much improved on the face and trunk. S till has it on both the legs with beginning of desquamation. Physical Exam: Vitals: As below General Exam: Positive: Alert, Cooperative, No Acute Distress Eye Exam: Positive: PERRLA, Conjunctiva & lids normal, EOMI; Negative: Sclera icteric ENT Exam: Positive: Atraumatic, Mucous membr. moist/pink, Pharynx Normal, Tongue Midline, Other ENT (No oral mucosal lesion seen, had uvular swelling wh ich has resolved as reported by alexandra. ) Neck Exam: Positive: Supple; Negative: JVD, thyromegaly Chest Exam: Positive: Clear to auscultation, Normal air movement Heart Exam: Positive: Rate Normal, Regular Rhythm, Normal S1, Normal S2; Negative: Murmurs, Rubs Abdomen Exam: Positive: Normal bowel sounds, Soft, Other (No perineal lesions); Negative: Tenderness, Hepatospenomegaly Extremity Exam: Negative: Clubbing, Cyanosis, Edema Skin Exam: Positive: Rash (desquamating pink/ red patches on back, chest ,arms, face with red target like pink papules and plaques on the face, chest, abdomen, arms, legs) improving. Labs and radiology noted. 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 Rash first appeared from the scalp with headache and burning on 03/21/20 and progressed to involve the whole body in 3 to 4 days. 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 TEN/SJS thought to be related to Hydroxy chloroquine sulphate mucosal lesions have resolved. follow derm recommendations IVF solumedrol x 3 doses, neoral, tylenol, hydroxyzine dressing to be done as per derm Eye drops prednisone and artificial tears. Possible Rheumatoid arthritis getting outpatient work up Morbid obesity with BRODY reports does not need CPAP Reactive airway disease albuterol prn Anxiety and depression continue home meds GERD PPI Leucocytosis probably related to methyl pred Mild hypertension will give amlodipine if needed. VS,Fishbone, I+O VS, Fishbone, I+O Laboratory Tests 04/02/20 05:54 Vital Signs Date Time Temp Pulse Resp B/P (MAP) Pulse Ox O2 Delivery O2 Flow Rate FiO2 04/02/20 09:00 51 142/73 04/02/20 05:51 98.4 18 97 Room Air I&O- Last 24 Hours up to 6 AM 04/02/20 06:00 Intake Total 2410 ml Output Total 0 ml Balance 2410 ml NELA SIDDIQI MD April 02, 2020 12:36
--- NOTE | 2020-04-02 13:27 | IPNPDOC ---
Text Note Date of Service The patient was seen on 04/02/20. NOTE SUBJECTIVE: Patient is a 59 year old female who originally presented to the dermatology clinic on 03/29/2020 with complaint of rash covering whole body 10 days after starting hydroxychloroquine for RA with concern for TEN. Patient was admitted that same day. Patient was examined this afternoon. She reported good sleep last night. She states that her pain has improved. She has minimal burning pain. No current complaints. Skin is peeling, areas are not as red, more brown in color now. REVIEW OF SYSTEMS: CONSTITUTIONAL: No fevers, chill, occasional flushing sensation HEENT: No oral sores, gums not bleeding, no gritty eye sensation, no change in vision CARDIOVASCULAR: No chest pain, no murmurs, no chest discomfort, no chest pressure RESPIRATORY: No breathing difficulty, no cough, no hemoptysis GENITOURINARY: Reported labia lesions that are resolved GASTROINTESTINAL: No trouble eating, no N/V/D SKIN: Whole body rash that is peeling, itching, and burning - improving per patient PHYSICAL EXAMINATION: VITAL SIGNS: Please see below. GENERAL APPEARANCE: Pleasant, no apparent distress, OAx3 SKIN: Desquamating, peeling, pink to red patches to back, chest , arms, and fa ce that is improving. She also has pink to red targetoid pink papules and plaques on her face chest back abdomen arms and legs hands and feet, patient reports rash is less painful today and has decreased in size - BSA 15 % with increased desquamation especially abdomen, buttocks, and legs - appearance is more of a brawny pink today HEENT: Head is atraumatic, oral mucosa is moist, round and re-active to light for eyes, eyes do not have hyperemia RESPIRATORY: RRR, no labored breathing LABORATORY DATA: Please see below. ASSESSMENT/PLAN: A 59 year old female admitted for TEN with original 66% BSA who is now at 15% BSA. Possible subcorneal subtype. Admitted to regular floor. With the possibili ty to transfer to ICU if condition worsens and plan to transfer to a burn unit in [place] in she has no improvement or worsens, patient aware. She is 80% better compared to original visit on Sunday, finished 3 days of Solumedrol IV and PO CSA (through Sunday evening), blood pressure with elevation compared to baseline but stable now, Mg stable, K not problematic. 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 If persistent fever or blood culture positive, defer to primary team on antibiotic coverage and consult ID as indicated - Use gentle cleanser daily prior to applying thick layer of Vaseline and non- adherent dressings (non-adherent dressings should be placed on pressure areas like the back, buttocks, and back of legs) - Vaseline is to be applied ad sergio, thick and greasy, patient and nursing aware - FINISHED Solumedrol 125 mg IV every 24 hours x 3 days, SER with patient of steroid IV at high doses, she is aware including blood pressure elevation, water retention, change to electrolytes, eugenie, trouble sleeping - Continue Neoral (it needs to specifically be Neoral) to < 5 mg/kg divided into AM and PM dose x 5 days of medication total - this would be 200 mg PO BID. Last dose this upcoming Sunday night. Tolerating well right now. Mild increase in BP noted, sCr normal with slight elevation compared to baseline yesterday that has returned to 0.88 with MgOx (CSA is vasoconstricter on short term base usage), K normal, Mg today is 2 - Continue MgOx 400 mg PO BID - Continue artificial tears and prednisolone acetate TID OU to decrease optic inflammation, will require outpatient ophthalmology follow up. I would prefer an inpatient ophtho evaluation but I understand this is not available right now - she feels eyes are better, no gritty sensation 2. Elevated WBC with neutrophilia - I favor this to be 2/2 prednisone that has been delivered causing neutrophil demargination. - If spikes fever (100.4 degrees or higher), blood culture to be performed x 2 and repeat temperature in 30 minutes. If persistent fever or blood culture positive, defer to primary team on antibiotic coverage and consult ID as indicated Dermatology will continue to see this patient. She is to remain inpatient for the time to monitor for clinical change. Low threshold for transfer if problems beyond [facility]'s capabilities develop. Anticipated discharge April 05, 2020, please consider discharge planning to expedite process on Sunday if clinically appropriate. Thank you for your care of this patient. Renny Ribeiro MD [facility] [phone] (personal cell) [phone] (work cell) VS,Fishbone, I+O VS, Fishbone, I+O Laboratory Tests 04/02/20 05:54 Vital Signs Date Time Temp Pulse Resp B/P (MAP) Pulse Ox O2 Delivery O2 Flow Rate FiO2 04/02/20 09:00 51 142/73 04/02/20 05:51 98.4 18 97 Room Air I&O- Last 24 Hours up to 6 AM 04/02/20 05:59 Intake Total 2410 ml Output Total 0 ml Balance 2410 ml RENNY RIBEIRO MD April 02, 2020 13:26
[2020-04-02 14:00] VITALS: BP 145/86
[2020-04-02] MEDS: ENOXAPARIN 40MG/0.4ML SYRINGE (J1650 PER 10MG) SC SCH (20:01)
[2020-04-02] MEDS: SODIUM CHLORIDE NASAL 0.65% SPRAY BTL (OCEAN) PRN (20:02)
[2020-04-02 22:00] VITALS: BP 151/87
[2020-04-03] MEDS: hydrOXYzine 25 MG TAB PO PRN (04:26)
[2020-04-03 06:00] VITALS: BP 156/96
[2020-04-03 06:34] LABS: BASO % 0.1 % (0.0-1.0); EOS % 0.2 % (0.0-3.0); HEMATOCRIT 34.2 % (36.0-47.0); HEMOGLOBIN 11.2 g/dl (12.0-15.5); LYMPH % 27.7 % (24.0-44.0); MEAN CORPUSCULAR HGB CONC 32.7 g/dl (32.0-36.5); MEAN CORPUSCULAR VOLUME 94.7 fl (80.0-96.0); MONO # 0.9 10^3/uL (0.0-0.8); MONO % 6.1 % (0.0-5.0); NEUTROPHILS # 9.3 10^3/uL (1.5-8.5); NEUTROPHILS % 64.5 % (36.0-66.0); PLATELET COUNT, AUTOMATED 345 10^3/uL (150-450); RED BLOOD COUNT 3.61 10^6/uL (4.00-5.40); WHITE BLOOD COUNT 14.4 10^3/uL (4.0-10.0)
[2020-04-03 07:02] LABS: BLOOD UREA NITROGEN 21 MG/DL (7-18); CALCIUM LEVEL 9.3 MG/DL (8.8-10.2); CARBON DIOXIDE LEVEL 32 MEQ/L (21-32); CHLORIDE LEVEL 101 MEQ/L (98-107); CREATININE FOR GFR 0.85 MG/DL (0.55-1.30); GLOMERULAR FILTRATION RATE > 60.0 (>45); GLUCOSE, FASTING 106 MG/DL (70-100); MAGNESIUM LEVEL 2.1 MG/DL (1.8-2.4); POTASSIUM SERUM 4.4 MEQ/L (3.5-5.1); SODIUM LEVEL 138 MEQ/L (136-145)
[2020-04-03] MEDS: MAGNESIUM OXIDE 400 MG TAB (MAG-OX) PO SCH ×2 (09:00→21:24)
[2020-04-03] MEDS: amLODIPine 5 MG TAB PO SCH (09:00)
[2020-04-03] MEDS: PANTOPRAZOLE 40MG TAB (PROTONIX) PO SCH (09:00)
[2020-04-03] MEDS: FLUoxetine 10 MG CAP PO SCH (09:00)
[2020-04-03] MEDS: prednisoLONE ACET 1% OPHTH SUSP 5ML OU SCH ×3 (09:01→21:26)
[2020-04-03] MEDS: POLYVINYL ALCOHOL OPHTH SOLN 15 ML(LIQUITEARS) OU SCH ×3 (09:01→21:25)
[2020-04-03] MEDS: NEORAL 25 MG CAP (J7515) PO SCH ×2 (09:01→21:24)
--- NOTE | 2020-04-03 11:17 | IPNPDOC ---
Text Note Date of Service The patient was seen on 04/03/20. NOTE Subjective: As per patient and night resident had flushing all over the body for hours and would not go down. Had facial Erythema with small white pustules associated with burning sensation and itching. 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 which helped with the erythema nd itching but took about 2 hours to work. On my exam this morning about 9:30 there was not flushing , no new rash. In fact her skin was looking clearer. The the rash in the legs also seems to be clearing up. She again complained of some heaviness int he chest early in the morning with the flushing going on. will get an EKG. Physical Exam: Vitals: As below General Exam: Positive: Alert, Cooperative, No Acute Distress Eye Exam: Positive: PERRLA, Conjunctiva & lids normal, EOMI; Negative: Sclera icteric ENT Exam: Positive: Atraumatic, Mucous membr. moist/pink, Pharynx Normal, Tongue Midline, Other ENT (No oral mucosal lesion seen, had uvular swelling which has resolved as reported by alexandra. ) Neck Exam: Positive: Supple; Negative: JVD, thyromegaly Chest Exam: Positive: Clear to auscultation, Normal air movement Heart Exam: Positive: Rate Normal, Regular Rhythm, Normal S1, Normal S2; Negative: Murmurs, Rubs Abdomen Exam: Positive: Normal bowel sounds, Soft, Other (No perineal lesions); Negative: Tenderness, Hepatospenomegaly Extremity Exam: Negative: Clubbing, Cyanosis, Edema Skin Exam: Positive: Rash (desquamating pink/ red patches on back, chest ,arms, face with red target like pink papules and plaques on the face, chest, abdomen, arms, legs) improving. Labs and radiology noted. 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 Rash first appeared from the scalp with headache and burning on 03/21/20 and progressed to involve the whole body in 3 to 4 days. 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 TEN/SJS thought to be related to Hydroxy chloroquine sulphate follow derm recommendations IVF solumedrol x 3 doses, neoral, tylenol, hydroxyzine dressing to be done as per derm Eye drops prednisone and artificial tears. Possible Rheumatoid arthritis getting outpatient work up Morbid obesity with BRODY reports does not need CPAP Reactive airway disease albuterol prn Anxiety and depression continue home meds GERD PPI Leucocytosis probably related to methyl pred and ongoing skin inflammation. Mild hypertension will give amlodipine if needed. VS,Fishbone, I+O VS, Fishbone, I+O Laboratory Tests 04/03/20 06:10 Vital Signs Date Time Temp Pulse Resp B/P (MAP) Pulse Ox O2 Delivery O2 Flow Rate FiO2 04/03/20 06:00 97.8 79 20 156/96 (116) 100 Room Air I&O- Last 24 Hours up to 6 AM 04/03/20 06:00 Intake Total 1240 ml Balance 1240 ml NELA SIDDIQI MD April 03, 2020 07:42
[2020-04-03 14:00] VITALS: BP 130/78
--- NOTE | 2020-04-03 14:02 | IPNPDOC ---
Text Note Date of Service The patient was seen on 04/03/20. NOTE SUBJECTIVE: Patient is a 59 year old female who originally presented to the dermatology clinic on 03/29/2020 with complaint of rash covering whole body 10 days after starting hydroxychloroquine for RA with concern for TEN. Patient was admitted that same day. Patient was examined this afternoon. She reported flushing x 2 hours last night that started at 4 am. Overnight resident raised the concern for pustules on the face where flaring was occurring. Mild headache. Did have upper abdomen to lower chest discomfort again, medicine team ordered EKG, which has been completed. Eve freedman is on PPI. Did have 1 watery stool about noon, no pain with defecation, no trouble drinking or eating, no sores in mouth. Skin is peeling, areas are not as red, more brown in color now, back is now entirely clear. REVIEW OF SYSTEMS: CONSTITUTIONAL: No fevers, chill, occasional flushing sensation HEENT: No oral sores, gums not bleeding, no gritty eye sensation, no change in vision CARDIOVASCULAR: Mild chest pain to lower abdomen pain earlier today, currently resolved; no chest pressure RESPIRATORY: No breathing difficulty, no cough, no hemoptysis GENITOURINARY: Reported labia lesions that are resolved, no pain with urination GASTROINTESTINAL: No trouble eating, no N/V, did have one episode of watery diarrhea mid-day, no pain with defecation SKIN: Whole body rash that is peeling, itching, and burning - improving per patient PHYSICAL EXAMINATION: VITAL SIGNS: Please see below. GENERAL APPEARANCE: Pleasant, no apparent distress, OAx3, tearful at times SKIN: Desquamating, peeling, pink to red patches to back, chest , arms, and face that is improving. She also has pink to red targetoid pink papules and plaques on her face chest back abdomen arms and legs hands and feet, patient reports rash is less painful today and has decreased in size - BSA 12 % with increased desquamation especially abdomen, buttocks, and legs - appearance is more of a brawny pink currently HEENT: Head is atraumatic, oral mucosa is moist, round and re-active to light for eyes, eyes do not have hyperemia RESPIRATORY: RRR, no labored breathing LABORATORY DATA: Please see below. ASSESSMENT/PLAN: A 59 year old female admitted for TEN with original 66% BSA who is now at 12% BSA. Possible subcorneal subtype. Admitted to regular floor. With the possibility to transfer to ICU if condition worsens and plan to transfer to a burn unit in [place] in she has no improvement or worsens, patient aware. She is 80% better compared to original visit on Sunday, finished 3 days of Solumedrol IV and PO CSA (through Sunday evening), blood pressure with elevation compared to baseline but stable now, Mg stable, K not problematic, sCr bump returned to normal yesterday and still normal. 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 If persistent fever or blood culture positive, defer to primary team on antibiotic coverage and consult ID as indicated - Use gentle cleanser daily prior to applying thick layer of Vaseline and non- adherent dressings (non-adherent dressings should be placed on pressure areas like the back, buttocks, and back of legs) - Vaseline is to be applied ad sergio, thick and greasy, patient and nursing aware - FINISHED Solumedrol 125 mg IV every 24 hours x 3 days, SER with patient of steroid IV at high doses, she is aware including blood pressure elevation, water retention, change to electrolytes, eugenie, trouble sleeping. I believe the patient is now experiencing the downturn of being on high dose acute steroids - feeling more sluggish, anxious, tearful. I discussed this with her, she is aware. - FINISH Neoral (it needs to specifically be Neoral) to < 5 mg/kg divided into AM and PM dose x 5 days of medication total - this would be 200 mg PO BID. Last dose tonight. Is developing side effects related to reaching steady state level of CSA. Mild increase in BP noted, sCr normal with slight elevation compared to baseline that has returned to baseline with MgOx (CSA is vasoconstricter on short term base usage), K normal, Mg today is normal. I believe the faint headache, gastritis (discomfort upper abdomen to lower chest), and watery diarrhea episode are related to CSA, patient is aware - Continue MgOx 400 mg PO BID - Continue artificial tears and prednisolone acetate TID OU to decrease optic inflammation, will require outpatient ophthalmology follow up. I would prefer an inpatient ophtho evaluation but I understand this is not available right now - she feels eyes are better, no gritty sensation 2. Elevated WBC with neutrophilia - I favor this to be 2/2 prednisone that has been delivered causing neutrophil demargination. - If spikes fever (100.4 degrees or higher), blood culture to be performed x 2 and repeat temperature in 30 minutes. If persistent fever or blood culture positive, defer to primary team on antibiotic coverage and consult ID as indicated 3. Diarrhea - 1 episode. Favor 2/2 water offloading after coming off IV steroid and as a side effect of CSA. Patient aware. Recommend BRAT diet, food should be bland and thick. Would not use anti-diarrheal at this time. 4. Lower chest to upper abdomen discomfort -I favor gastritis related to CSA and/or the IV high dose steroid she received. Continue PPI. Follow up EKG o rdered by medicine team. 5. Hypertension - Stable, improved on MgOx, favor 2/2 CSA and IV high dose steroid. PRN amlodipine per medicine team. 6. Headache - Mild, favor 2/2 CSA and coming off IV high dose steroid. 7. Tearfulness - Mood changes can happen when starting or coming off high dose steroids, patient aware. Contracted for safety. Dermatology will continue to see this patient. She is to remain inpatient for the time to monitor for clinical change. Low threshold for transfer if problems beyond [facility]'s capabilities develop. Anticipated discharge April 05, 2020, please consider discharge planning to expedite process on Sunday if clinically appropriate. Thank you for your care of this patient. Renny Ribeiro MD [facility] [phone] (personal cell) [phone] (work cell) VS,Jac, I+O VS, Jac, I+O Laboratory Tests 04/03/20 06:10 Vital Signs Date Time Temp Pulse Resp B/P (MAP) Pulse Ox O2 Delivery O2 Flow Rate FiO2 04/03/20 09:00 72 130/90 04/03/20 06:00 97.8 20 100 Room Air I&O- Last 24 Hours up to 6 AM 04/03/20 06:00 Intake Total 1240 ml Balance 1240 ml RENNY RIBEIRO MD April 03, 2020 14:02
[2020-04-03] MEDS: ENOXAPARIN 40MG/0.4ML SYRINGE (J1650 PER 10MG) SC SCH (21:25)
[2020-04-03 22:00] VITALS: BP 132/78
[2020-04-04 06:00] VITALS: BP 135/78
[2020-04-04 07:05] LABS: HEMOGLOBIN 11.9 g/dl (12.0-15.5); MEAN CORPUSCULAR HEMOGLOBIN 31.6 pg (27.0-33.0); MEAN CORPUSCULAR HGB CONC 33.1 g/dl (32.0-36.5); MEAN CORPUSCULAR VOLUME 95.5 fl (80.0-96.0); PLATELET COUNT, AUTOMATED 336 10^3/uL (150-450); RED BLOOD COUNT 3.77 10^6/uL (4.00-5.40); WHITE BLOOD COUNT 9.7 10^3/uL (4.0-10.0)
[2020-04-04 07:23] LABS: ATYPICAL LYMPH 2 % (0-5); EOSINOPHILS 2 % (0-3); LYMPHOCYTES 45 % (16-44); MONOCYTES 7 % (0-5); NEUTROPHILS 44 % (28-66)
[2020-04-04 07:24] LABS: PLATELET ESTIMATE NORMAL (NORMAL)
[2020-04-04 07:34] LABS: BLOOD UREA NITROGEN 23 MG/DL (7-18); CALCIUM LEVEL 8.5 MG/DL (8.8-10.2); CARBON DIOXIDE LEVEL 33 MEQ/L (21-32); CHLORIDE LEVEL 103 MEQ/L (98-107); CREATININE FOR GFR 0.96 MG/DL (0.55-1.30); GLOMERULAR FILTRATION RATE > 60.0 (>45); GLUCOSE, FASTING 84 MG/DL (70-100); MAGNESIUM LEVEL 2.1 MG/DL (1.8-2.4); POTASSIUM SERUM 4.4 MEQ/L (3.5-5.1); SODIUM LEVEL 141 MEQ/L (136-145)
[2020-04-04] MEDS: amLODIPine 5 MG TAB PO SCH (09:00)
[2020-04-04] MEDS: FLUoxetine 10 MG CAP PO SCH (09:12)
[2020-04-04] MEDS: PANTOPRAZOLE 40MG TAB (PROTONIX) PO SCH (09:13)
[2020-04-04] MEDS: MAGNESIUM OXIDE 400 MG TAB (MAG-OX) PO SCH ×2 (09:13→21:31)
[2020-04-04] MEDS: NEORAL 25 MG CAP (J7515) PO SCH (09:14)
[2020-04-04] MEDS: POLYVINYL ALCOHOL OPHTH SOLN 15 ML(LIQUITEARS) OU SCH ×3 (09:21→21:32)
[2020-04-04] MEDS: prednisoLONE ACET 1% OPHTH SUSP 5ML OU SCH ×3 (09:21→21:32)
--- NOTE | 2020-04-04 09:47 | ECGEPIP ---
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 Electronically Signed on 04-04-2020 9:46:55 EDT by Harley Valdes
--- NOTE | 2020-04-04 11:21 | IPNPDOC ---
Text Note Date of Service The patient was seen on 04/04/20. NOTE Subjective: No complaints this morning. No further episodes of flushing or it yesika since yesterday morning. EKG normal sinus rhythm. No episodes of chest heaviness. Physical Exam: Vitals: As below General Exam: Positive: Alert, Cooperative, No Acute Distress Eye Exam: Positive: PERRLA, Conjunctiva & lids normal, EOMI; Negative: Sclera icteric ENT Exam: Positive: Atraumatic, Mucous membr. moist/pink, Pharynx Normal, Tongue Midline Neck Exam: Positive: Supple; Negative: JVD, thyromegaly Chest Exam: Positive: Clear to auscultation, Normal air movement Heart Exam: Positive: Rate Normal, Regular Rhythm, Normal S1, Normal S2; Negative: Murmurs, Rubs Abdomen Exam: Positive: Normal bowel sounds, Soft, Other (No perineal lesions); Negative: Tenderness, Hepatospenomegaly Extremity Exam: Negative: Clubbing, Cyanosis, Edema Skin Exam: mostly resolved Rash (desquamating pink/ red patches on back, chest ,arms, face with red target like pink papules and plaques on the face, chest, abdomen, arms, legs) . Rash now only on bothe the legs which are desquamating , Labs and radiology noted. 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 Rash first appeared from the scalp with headache and burning on 03/21/20 and progressed to involve the whole body in 3 to 4 days. 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 TEN/SJS thought to be related to Hydroxy chloroquine sulphate follow derm recommendations IVF solumedrol x 3 doses, neoral, tylenol, hydroxyzine dressing to be done as per derm Eye drops prednisone and artificial tears. Possible Rheumatoid arthritis getting outpatient work up Morbid obesity with BRODY reports does not need CPAP Reactive airway disease albuterol prn Anxiety and depression continue home meds GERD PPI Leucocytosis probably related to methyl pred and ongoing skin inflammation. now resolved. Mild hypertension related to steroid and cyclosporine resolved. will give amlodipine if needed. VS,Fishbone, I+O VS, Fishbone, I+O Laboratory Tests 04/04/20 06:54 Vital Signs Date Time Temp Pulse Resp B/P (MAP) Pulse Ox O2 Delivery O2 Flow Rate FiO2 04/04/20 09:00 55 135/78 04/04/20 06:00 98.1 18 97 Room Air I&O- Last 24 Hours up to 6 AM 04/04/20 06:00 Intake Total 2112 ml Balance 2112 ml NELA SIDDIQI MD April 04, 2020 11:21
[2020-04-04 14:00] VITALS: BP 120/78
--- NOTE | 2020-04-04 17:32 | IPNPDOC ---
Text Note Date of Service The patient was seen on 04/04/20. NOTE SUBJECTIVE: Patient is a 59 year old female who originally presented to the dermatology clinic on 03/29/2020 with complaint of rash covering whole body 10 days after starting hydroxychloroquine (started March 11, 2020 with rash development March 21, 2020 that progressed quickly) for RA with concern for TEN. Patient was admitted that same day. Patient was examined this afternoon. No flushing, no pains in chest, no diarrhea. No trouble drinking or eating, no sores in mouth. Skin is peeling, areas are not as red, more brown in color now, back is now entirely clear. Patient has better mood than yesterday as well. REVIEW OF SYSTEMS: CONSTITUTIONAL: No fevers, chill, occasional flushing sensation HEENT: No oral sores, gums not bleeding, no gritty eye sensation, no change in vision CARDIOVASCULAR: No chest pain, no chest pressure RESPIRATORY: No breathing difficulty, no cough, no hemoptysis GENITOURINARY: Reported labia lesions that are resolved, no pain with urination GASTROINTESTINAL: No trouble eating, no N/V, no further diarrhea after yesterday no pain with defecation SKIN: Whole body rash that is peeling, itching, and burning - improving per patient PHYSICAL EXAMINATION: VITAL SIGNS: Please see below. GENERAL APPEARANCE: Pleasant, no apparent distress, OAx3, tearful at times SKIN: Desquamating, peeling, pink to red patches to back, chest , arms, and face that is improving. She also has pink to red targetoid pink papules and plaques on her face chest back abdomen arms and legs hands and feet, patient reports rash is less painful today and has decreased in size - BSA 6 % with increased desquamation especially abdomen, buttocks, and legs - appearance is more of a brawny pink currently HEENT: Head is atraumatic, oral mucosa is moist, round and re-active to light for eyes, eyes do not have hyperemia RESPIRATORY: RRR, no labored breathing LABORATORY DATA: Please see below. ASSESSMENT/PLAN: A 59 year old female admitted for TEN with original 66% BSA who is now at 6% BSA. Possible subcorneal subtype. Admitted to regular floor. With the possibili ty to transfer to ICU if condition worsens and plan to transfer to a burn unit in [place] in she has no improvement or worsens, patient aware. She is 90% better compared to original visit on Sunday, finished 3 days of Solumedrol IV and 5 days of PO CSA, blood pressure with elevation compared to baseline but now back to normal, Mg stable, K not problematic, sCr remains normal, WBC has normalized. 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 to original visit with me - No painful problems with urination or defecation - mucosa intact and doing well at this point in time - Regular diet, ad sergio activity - Monitor CBC, BMP (potassium as focus) and Mg daily while on CSA and to monitor white count for any problematic changes - Use gentle cleanser daily prior to applying thick layer of Vaseline and non- adherent dressings - Vaseline is to be applied ad sergio, thick and greasy, patient and nursing aware - FINISHED Solumedrol 125 mg IV every 24 hours x 3 days, SER with patient of steroid IV at high doses, she is aware including blood pressure elevation, water retention, change to electrolytes, eugenie, trouble sleeping. I believe the patient is now experiencing the downturn of being on high dose acute steroids - mood improved now - FINISHED Neoral (it needs to specifically be Neoral) to < 5 mg/kg divided into AM and PM dose x 5 days of medication total - this would be 200 mg PO BID. Is developing side effects related to reaching steady state level of CSA. Mild increase in BP noted, sCr normal with slight elevation compared to baseline today 0.96, previously 0.95 was high, currently on MgOx (CSA is vasoconstricter on short term base usage) that helps with CSA side effects and Mg wasting, K normal, Mg today is normal. I believe the faint headache, gastritis (discomfort upper abdomen to lower chest), and watery diarrhea episode are related to CSA, patient is aware - all have gone away for patient and EKG was NSR yesterday - Continue MgOx 400 mg PO BID while inpatient (see below) - Continue artificial tears and prednisolone acetate TID OU to decrease optic inflammation (see below) 2. Elevated WBC with neutrophilia - Resolved. I favor this to be 2/2 prednisone that has been delivered causing neutrophil demargination. - If spikes fever (100.4 degrees or higher), blood culture to be performed x 2 and repeat temperature in 30 minutes. If persistent fever or blood culture positive, defer to primary team on antibiotic coverage and consult ID as indicated 3. Diarrhea - 1 episode on 04/03/2020, currently resolved. Favor 2/2 water offloading after coming off IV steroid and as a side effect of CSA. Patient aware. Recommend BRAT diet, food should be bland and thick. 4. Lower chest to upper abdomen discomfort - Resolved. I favor gastritis related to CSA and/or the IV high dose steroid she received. Continue PPI. EKG NSR with no acute appearing changes. 5. Hypertension - Resolved. On MgOx. PRN amlodipine per medicine team. 6. Headache - Resolved 7. Anxiety/Depression/Tearfulness - Mood changes can happen when starting or coming off high dose steroids, patient aware. Better today. Continue fluoxetine at home dosing. Outpatient follow up. 8. Mild hypocalcemia - Consider calcium supplementation as patient has had calciums in the 8s during hospitalization. Dermatology will continue to see this patient. She is to remain inpatient for the time to monitor for clinical change. Low threshold for transfer if problems beyond [facility] capabilities develop. Anticipated discharge April 05, 2020 at 5 pm, please start discharge planning to expedite process on Sunday if clinically appropriate. I will see the patient at mid day Sunday. 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 Can resume all home medications. Patient aware of the above. Thank you for your care of this patient. Renny Ribeiro MD [facility] [phone] (personal cell) [phone] (work cell) VS,Fishbone, I+O VS, Fishbone, I+O Laboratory Tests 04/04/20 06:54 Vital Signs Date Time Temp Pulse Resp B/P (MAP) Pulse Ox O2 Delivery O2 Flow Rate FiO2 04/04/20 14:00 98.6 63 18 120/78 (92) 98 Room Air I&O- Last 24 Hours up to 6 AM 04/04/20 06:00 Intake Total 2112 ml Balance 2112 ml RENNY RIBEIRO MD April 04, 2020 17:32
[2020-04-04] MEDS: ENOXAPARIN 40MG/0.4ML SYRINGE (J1650 PER 10MG) SC SCH (21:32)
[2020-04-04 21:35] VITALS: BP 125/77
[2020-04-05 06:00] VITALS: BP 124/74
[2020-04-05 07:14] LABS: BASO # 0.1 10^3/uL (0.0-0.2); BASO % 0.7 % (0.0-1.0); EOS # 0.4 10^3/uL (0.0-0.5); EOS % 3.7 % (0.0-3.0); HEMATOCRIT 41.4 % (36.0-47.0); HEMOGLOBIN 13.7 g/dl (12.0-15.5); LYMPH # 3.7 10^3/uL (1.5-5.0); LYMPH % 38.6 % (24.0-44.0); MEAN CORPUSCULAR HEMOGLOBIN 31.7 pg (27.0-33.0); MEAN CORPUSCULAR HGB CONC 33.1 g/dl (32.0-36.5); MEAN CORPUSCULAR VOLUME 95.8 fl (80.0-96.0); MONO # 0.7 10^3/uL (0.0-0.8); MONO % 7.5 % (0.0-5.0); NEUTROPHILS # 4.7 10^3/uL (1.5-8.5); NEUTROPHILS % 48.7 % (36.0-66.0); PLATELET COUNT, AUTOMATED 367 10^3/uL (150-450); RED BLOOD COUNT 4.32 10^6/uL (4.00-5.40); WHITE BLOOD COUNT 9.7 10^3/uL (4.0-10.0)
[2020-04-05 07:51] LABS: BLOOD UREA NITROGEN 17 MG/DL (7-18); CALCIUM LEVEL 8.9 MG/DL (8.8-10.2); CARBON DIOXIDE LEVEL 34 MEQ/L (21-32); CHLORIDE LEVEL 100 MEQ/L (98-107); CREATININE FOR GFR 0.95 MG/DL (0.55-1.30); GLOMERULAR FILTRATION RATE > 60.0 (>45); GLUCOSE, FASTING 91 MG/DL (70-100); MAGNESIUM LEVEL 2.4 MG/DL (1.8-2.4); POTASSIUM SERUM 4.7 MEQ/L (3.5-5.1); SODIUM LEVEL 138 MEQ/L (136-145)
[2020-04-05] MEDS: MAGNESIUM OXIDE 400 MG TAB (MAG-OX) PO SCH (08:14)
[2020-04-05] MEDS: FLUoxetine 10 MG CAP PO SCH (08:14)
[2020-04-05] MEDS: PANTOPRAZOLE 40MG TAB (PROTONIX) PO SCH (08:14)
[2020-04-05 08:15] VITALS: BP 127/86
[2020-04-05] MEDS: amLODIPine 5 MG TAB PO SCH (08:15)
[2020-04-05] MEDS: prednisoLONE ACET 1% OPHTH SUSP 5ML OU SCH (08:16)
[2020-04-05] MEDS: POLYVINYL ALCOHOL OPHTH SOLN 15 ML(LIQUITEARS) OU SCH (08:16)
--- NOTE | 2020-04-05 10:07 | DS.PDOC ---
Discharge Summary General Date of Admission March 29, 2020 at 18:21 Date of Discharge 04/05/20 Discharge Summary PROCEDURES PERFORMED DURING STAY: [None]. 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 SECONDARY DIAGNOSIS: RA possible being worked up as outpateint Obesity BRODY, Prediabetes, Reactive airway disease Anxiety and depression, Recurrent UTIs. GERD DDD HLD Renal stone s/p lithotripsy right carpal tunnel repair 2010 Emergency Ex lap for cecal volvulus 2018 removed cecum and 6 inches of colon COMPLICATIONS/CHIEF COMPLAINT: Jackson Louis Syndrome. HISTORY OF PRESENT ILLNESS: see history and physical HOSPITAL COURSE: 59 year old female admitted directly from dermatology clinic for possible Tarik Louis syndrome/TEN thought to be due to HCQS which was started on 03/11/20. Rash first appeared from the scalp with headache and burning on 03/21/20 and progressed to involve the whole body in 3 to 4 days. 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 TEN/SJS thought to be related to Hydroxy chloroquine sulphate follow derm recommendations IVF solumedrol x 3 doses, neoral, tylenol, hydroxyzine dressing to be done as per derm Eye drops prednisone and artificial tears. Possible Rheumatoid arthritis getting outpatient work up Morbid obesity with BRODY reports does not need CPAP Reactive airway disease albuterol prn Anxiety and depression continue home meds GERD PPI DISCHARGE MEDICATIONS: Please see below. ALLERGIES: Please see below. PHYSICAL EXAMINATION ON DISCHARGE: VITAL SIGNS: Please see below. General Exam: Positive: Alert, Cooperative, No Acute Distress Eye Exam: Positive: PERRLA, Conjunctiva & lids normal, EOMI; Negative: Sclera icteric ENT Exam: Positive: Atraumatic, Mucous membr. moist/pink, Pharynx Normal, Tongue Midline Neck Exam: Positive: Supple; Negative: JVD, thyromegaly Chest Exam: Positive: Clear to auscultation, Normal air movement Heart Exam: Positive: Rate Normal, Regular Rhythm, Normal S1, Normal S2; Negative: Murmurs, Rubs Abdomen Exam: Positive: Normal bowel sounds, Soft, Other (No perineal lesions); Negative: Tenderness, Hepatospenomegaly Extremity Exam: Negative: Clubbing, Cyanosis, Edema Skin Exam: mostly resolved Rash, desquamations ongoing on the arms. Rash now only on both the legs which are desquamating , LABORATORY DATA: Please see below. ACTIVITY: [As tolerated]. DIET: regular DISCHARGE PLAN: Home DISPOSITION: . DISCHARGE INSTRUCTIONS: Follow up Dr Farfan in 1 week PMD in 2 weeks DISCHARGE CONDITION: [Stable]. TIME SPENT ON DISCHARGE: 35 minutes. Vital Signs/I&Os Vital Signs Date Time Temp Pulse Resp B/P (MAP) Pulse Ox O2 Delivery O2 Flow Rate FiO2 04/05/20 08:15 76 127/86 04/05/20 06:00 97.7 18 98 Room Air I&O- Last 24 Hours up to 6 AM 04/05/20 06:00 Intake Total 2050 ml Balance 2050 ml Laboratory Data Labs 24H Laboratory Tests 2 04/05/20 06:59: Immature Granulocyte % (Auto) 0.8, Neutrophils (%) (Auto) 48.7, Lymphocytes (%) (Auto) 38.6, Monocytes (%) (Auto) 7.5H, Eosinophils (%) (Auto) 3.7H, Basophils (%) (Auto) 0.7, Neutrophils # (Auto) 4.7, Lymphocytes # (Auto) 3.7, Monocytes # (Auto) 0.7, Eosinophils # (Auto) 0.4, Basophils # (Auto) 0.1, Nucleated Red Bl ood Cells % (auto) 0.0, Anion Gap 4L, Glomerular Filtration Rate > 60.0, Calcium Level 8.9, Magnesium Level 2.4 CBC/BMP Laboratory Tests 04/05/20 06:59 Discharge Medications Scheduled Bupropion HCl (Bupropion Xl) 300 Mg Tab.er.24h, 300 MG PO DAILY, (Reported) Cholecalciferol (Vitamin D3) (Vitamin D3) 1,000 Unit Tablet, 1,000 UNITS PO DAILY, (Reported) Fluoxetine Hcl (Fluoxetine HCl) 10 Mg Capsule, 10 MG PO DAILY, (Reported) Fluoxetine Hcl (Fluoxetine HCl) 20 Mg Capsule, 20 MG PO DAILY, (Reported) Linaclotide (Linzess) 72 Mcg Capsule, 72 MCG PO DAILY, (Reported) Pantoprazole Sodium (Pantoprazole Sodium) 40 Mg Tablet.dr, 40 MG PO DAILY, (Reported) Scheduled PRN Albuterol Sulfate (Ventolin Hfa) 18 Gm Hfa.aer.ad, 2 PUFFS INH Q4H PRN for DYSPNEA, (Reported) Hydroxyzine HCl (Hydroxyzine HCl) 50 Mg Tablet, 50 MG PO QID PRN for ITCHING, (Reported) Allergies Coded Allergies: chlorhexidine (Unverified Allergy, Severe, HIVES, 03/29/20) hydroxychloroquine (Unverified Allergy, Severe, Rash - SJS/TEN, 03/30/20) levofloxacin (Unverified Allergy, Severe, SWOLLEN EYES & LIPS, 03/29/20) NELA SIDDIQI MD April 05, 2020 10:07
--- NOTE | 2020-04-05 11:58 | IPNPDOC ---
Text Note Date of Service The patient was seen on 04/05/20. NOTE SUBJECTIVE: Patient is a 59 year old female who originally presented to the dermatology clinic on 03/29/2020 with complaint of rash covering whole body 10 days after starting hydroxychloroquine (started March 11, 2020 with rash development March 21, 2020 that progressed quickly) for RA with concern for TEN. Patient was admitted that same day. Patient was examined this afternoon. Mild flushing today (not as often or bad as it was at first) no pains in chest, no diarrhea. No trouble drinking or eating, no sores in mouth. Skin is peeling, areas are not as red, more brown in color now, back is now entirely clear. Ready for discharge. REVIEW OF SYSTEMS: CONSTITUTIONAL: No fevers, chill, occasional flushing sensation HEENT: No oral sores, gums not bleeding, no gritty eye sensation, no change in vision CARDIOVASCULAR: No chest pain, no chest pressure RESPIRATORY: No breathing difficulty, no cough, no hemoptysis GENITOURINARY: Reported labia lesions that are resolved, no pain with urination GASTROINTESTINAL: No trouble eating, no N/V, no further diarrhea after yesterday no pain with defecation SKIN: Whole body rash that is peeling, itching, and burning - improving per patient PHYSICAL EXAMINATION: VITAL SIGNS: Please see below. GENERAL APPEARANCE: Pleasant, no apparent distress, OAx3, tearful at times SKIN: Desquamating, peeling, pink to red patches to back, chest , arms, and face that is improving. She also has pink to red targetoid pink papules and plaques on her face chest back abdomen arms and legs hands and feet, patient reports rash is less painful today and has decreased in size - BSA 6% with increased desquamation especially abdomen, buttocks, and legs - appearance is more of a brawny pink currently HEENT: Head is atraumatic, oral mucosa is moist, round and re-active to light for eyes, eyes do not have hyperemia RESPIRATORY: RRR, no labored breathing LABORATORY DATA: Please see below. ASSESSMENT/PLAN: A 59 year old female admitted for TEN with original 66% BSA who is now at 6% BSA (90% improvement) who is ready for discharge, feeling good today. 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 No painful problems with urination or defecation - mucosa intact and doing well at this point in time. Regular activity and diet. Use gentle cleanser daily prior to applying thick layer of Vaseline and non-adherent dressings. Vaseline is to be applied ad sergio, thick and greasy. Finished Neoral and Solumedrol as an inpatient. Continue MgOx 400 mg PO daily as outpatient as below. Continue artificial tears and prednisolone acetate TID OU to decrease optic inflammation as below. 2. Elevated WBC with neutrophilia - Resolved. I favor this to be 2/2 prednisone that has been delivered causing neutrophil demargination. Did notice eos 0.4 today, advised patient that this is technically not above the threshold for normal for the lab but should be followed up with labs with primary later this week, she understands 3. Diarrhea - 1 episode on 04/03/2020, currently resolved. Favor 2/2 water offloading after coming off IV steroid and as a side effect of CSA. Patient aware. Recommend BRAT diet, food should be bland and thick. 4. Lower chest to upper abdomen discomfort - Resolved. I favor gastritis related to CSA and/or the IV high dose steroid she received. Continue PPI. EKG NSR with no acute appearing changes. 5. Hypertension - Resolved. On MgOx. PRN amlodipine per medicine team. 6. Headache - Resolved 7. Anxiety/Depression/Tearfulness - Mood changes can happen when starting or coming off high dose steroids, patient aware. Better today. Continue fluoxetine at home dosing. Outpatient follow up. 8. Mild hypocalcemia - Consider calcium supplementation as patient has had calciums in the 8s during hospitalization. 9. Flushing - Improving overall but still present several times per day. I believe this is 2/2 vasoconstriction and vasodilation from compromised skin barrier along with the Solumedrol and CSA which she has completed. Dermatology should be discharged. 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 Mild pruritus - Can take hydroxyzine per primary time, include in discharge work, low dose and not before driving or operating heavy machinery Can resume all home medications. Patient aware of the above. Thank you for your care of this patient. Renny Ribeiro MD [facility] [phone] (personal cell) [phone] (work cell) VS,Fishbone, I+O VS, Fishbone, I+O Laboratory Tests 04/05/20 06:59 Vital Signs Date Time Temp Pulse Resp B/P (MAP) Pulse Ox O2 Delivery O2 Flow Rate FiO2 04/05/20 08:15 76 127/86 04/05/20 06:00 97.7 18 98 Room Air I&O- Last 24 Hours up to 6 AM 04/05/20 06:00 Intake Total 2050 ml Balance 2050 ml RENNY RIBEIRO MD April 05, 2020 11:58
== END 2020-04-05 13:35 | disposition home or self-care (01) | DRG 596 ==
LOC: M MS5PR 18:21
PROVIDERS: ADMIT Internal Medicine Nephrology; ATTEND Internal Medicine Nephrology
DX: L51.2 Toxic epidermal necrolysis [Lyell] (principal); K21.9 Gastro-esophageal reflux disease without esophagitis; J45.909 Unspecified asthma, uncomplicated; F41.9 Anxiety disorder, unspecified; F32.9 Major depressive disorder, single episode, unspecified; G47.33 Obstructive sleep apnea (adult) (pediatric); T37.8X5A Adverse effect of other specified systemic anti-infectives and antiparasitics, initial encounter; M06.9 Rheumatoid arthritis, unspecified; Z79.899 Other long term (current) drug therapy; Z88.8 Allergy status to other drugs, medicaments and biological substances; Z87.442 Personal history of urinary calculi; L51.1 Stevens-Johnson syndrome; E66.01 Morbid (severe) obesity due to excess calories; I10 Essential (primary) hypertension; R51 Headache; R19.7 Diarrhea, unspecified; E83.51 Hypocalcemia

== ENCOUNTER → 2022-01-17 | Outpatient (REF) | payer OTHER ==
[~2022-01-17] MED LIST: BETA145CR TOP; BUPR300T92 PO; CETALIQ TOP; D31000TA2 PO; FAMO20TA PO; FLUO10CA18 PO; FLUO20CA22 PO; HYDR50TA70 PO; LINZ72CA PO; PANT40TA29 PO; PRED20TA PO; VENTAER INH
[2022-01-17 14:12] LABS: APPEARANCE, URINE CLOUDY (CLEAR); BACTERIA, URINE AUTO NEGATIVE (NEGATIVE); BILIRUBIN, URINE AUTO NEGATIVE (NEGATIVE); BLOOD, URINE BLOOD NEGATIVE (NEGATIVE); COLOR, URINE YELLOW (YELLOW); GLUCOSE, URINE (UA) AUTO NEGATIVE (NEGATIVE); KETONE, URINE AUTO TRACE mg/dL (NEGATIVE); LEUKOCYTE ESTERASE, URINE AUTO NEGATIVE (NEGATIVE); MUCUS, URINE SMALL (NEGATIVE); NITRITE, URINE AUTO NEGATIVE (NEGATIVE); PROTEIN, URINE AUTO NEGATIVE (NEGATIVE); RBC, URINE AUTO 2 /HPF (0-3); SPECIFIC GRAVITY URINE AUTO 1.024 (1.002-1.035); SQUAMOUS EPITHELIAL CELL UR AU 2 /HPF (0-6); UROBILINOGEN, URINE AUTO 0.2 mg/dL (0.0-2.0); WBC, URINE AUTO 1 /HPF (0-3)
[2022-01-17 14:16] LABS: C REACTIVE PROTEIN QUANTITATIV 0.36 MG/DL (0.00-0.30); MAGNESIUM LEVEL 2.4 MG/DL (1.8-2.4); PHOSPHORUS LEVEL 3.3 MG/DL (2.5-4.9)
[2022-01-17 14:24] LABS: TOTAL PROTEIN,RANDOM URINE 27.3 MG/DL (0.0-12.0)
[2022-01-19 16:08] LABS: ANCA-ATYPICAL <1:20 titer (Neg:<1:20); COMPLEMENT TOTAL (CH50) > 60 U/mL (>41); CYTOPLASMIC NEUTROP AB ANCA-C <1:20 titer (Neg:<1:20); PERINUCLEAR AB ANCA-P <1:20 titer (Neg:<1:20)
== END ==
LOC: M SFHCRHEU 10:29
PROVIDERS: ATTEND Internal Medicine
DX: R76.8 Other specified abnormal immunological findings in serum (principal); M79.10 Myalgia, unspecified site; M25.439 Effusion, unspecified wrist

== ENCOUNTER → 2022-03-07 | Outpatient (REF) | payer OTHER ==
[~2022-03-07] MED LIST changes: -D31000TA2 PO; +VITA100093 PO
[2022-03-07 12:30] LABS: BASO # 0.1 10^3/uL (0.0-0.2); BASO % 1.2 % (0.0-1.0); EOS # 0.2 10^3/uL (0.0-0.5); EOS % 3.6 % (0.0-3.0); HEMATOCRIT 40.8 % (36.0-47.0); HEMOGLOBIN 13.5 g/dl (12.0-15.5); LYMPH # 2.2 10^3/uL (1.5-5.0); LYMPH % 36.8 % (24.0-44.0); MEAN CORPUSCULAR HEMOGLOBIN 31.3 pg (27.0-33.0); MEAN CORPUSCULAR HGB CONC 33.1 g/dl (32.0-36.5); MEAN CORPUSCULAR VOLUME 94.7 fl (80.0-96.0); MONO # 0.4 10^3/uL (0.0-0.8); MONO % 6.8 % (2.0-8.0); NEUTROPHILS # 3.1 10^3/uL (1.5-8.5); NEUTROPHILS % 51.4 % (36.0-66.0); PLATELET COUNT, AUTOMATED 343 10^3/uL (150-450); RED BLOOD COUNT 4.31 10^6/uL (4.00-5.40); WHITE BLOOD COUNT 6.1 10^3/uL (4.0-10.0)
== END ==
LOC: M SFHCRHEU 08:57
PROVIDERS: ATTEND Internal Medicine
DX: R76.8 Other specified abnormal immunological findings in serum (principal)

== ENCOUNTER → 2022-03-29 | Outpatient (REF) | payer OTHER | LOC: M LAB REF 09:15 | PROVIDERS: ATTEND Otolaryngology | DX: M35.00 Sjogren syndrome, unspecified (principal) ==

== ENCOUNTER → 2022-12-07 | Outpatient (REF) | payer OTHER | LOC: M SFHCDERM 16:44 | PROVIDERS: ATTEND Physician Assistant | DX: L82.0 Inflamed seborrheic keratosis (principal) ==

== ENCOUNTER → 2025-10-09 | Outpatient (REF) | payer MEDICARE, OTHER ==
[~2025-10-09] MED LIST changes: +BUPR-766 PO; -BUPR300T92 PO; +FLUO-290 PO; +FLUO-365 PO; -FLUO10CA18 PO; -FLUO20CA22 PO
[2025-10-09 15:42] LABS: APPEARANCE, URINE CLEAR (CLEAR); BACTERIA, URINE AUTO NEGATIVE (NEGATIVE); BILIRUBIN, URINE AUTO NEGATIVE (NEGATIVE); BLOOD, URINE BLOOD NEGATIVE (NEGATIVE); GLUCOSE, URINE (UA) AUTO NEGATIVE (NEGATIVE); KETONE, URINE AUTO NEGATIVE (NEGATIVE); LEUKOCYTE ESTERASE, URINE AUTO 1+ (NEGATIVE); NITRITE, URINE AUTO NEGATIVE (NEGATIVE); PROTEIN, URINE AUTO NEGATIVE (NEGATIVE); RBC, URINE AUTO 0 /HPF (0-3); SPECIFIC GRAVITY URINE AUTO 1.010 (1.002-1.035); SQUAMOUS EPITHELIAL CELL UR AU 0 /HPF (0-6); UROBILINOGEN, URINE AUTO 0.2 mg/dL (0.0-2.0); WBC, URINE AUTO 1 /HPF (0-3)
[2025-10-09 16:12] LABS: TOTAL PROTEIN,RANDOM URINE 12.0 MG/DL (0.0-14.0)
[2025-10-09 17:07] LABS: BASO # 0.1 10^3/uL (0.0-0.2); BASO % 1.3 % (0.0-1.0); EOS # 0.3 10^3/uL (0.0-0.5); EOS % 4.6 % (0.0-3.0); LYMPH # 2.8 10^3/uL (1.5-5.0); LYMPH % 38.8 % (24.0-44.0); MONO # 0.5 10^3/uL (0.0-0.8); MONO % 6.8 % (2.0-8.0); NEUTROPHILS # 3.4 10^3/uL (1.5-8.5); NEUTROPHILS % 48.4 % (36.0-66.0); PLATELET COUNT, AUTOMATED 410 10^3/uL (150-450)
[2025-10-09 17:08] LABS: C REACTIVE PROTEIN QUANTITATIV < 0.50 MG/DL (<1.0); COMPLEMENT C4 32.3 MG/DL (12-36)
[2025-10-09 17:10] LABS: ALT/SGPT 16 U/L (7.0-40); AST/SGOT 19 U/L (<34); CALCIUM LEVEL 9.3 MG/DL (8.3-10.6); CARBON DIOXIDE LEVEL 28 MMOL/L (20-31); CHLORIDE LEVEL 101 MMOL/L (98-107); CREATININE FOR GFR 0.79 MG/DL (0.55-1.30); GLOMERULAR FILTRATION RATE 82.5 (>45); POTASSIUM SERUM 4.0 MMOL/L (3.5-5.1); SODIUM LEVEL 139 MMOL/L (136-145)
[2025-10-12 22:32] LABS: COMPLEMENT TOTAL (CH50) > 60 U/mL (31-60)
== END ==
LOC: M SFHCRHEU 13:38
PROVIDERS: ATTEND Internal Medicine
DX: M25.50 Pain in unspecified joint (principal); R76.89 Other specified abnormal immunological findings in serum